=== PATIENT | male | born 1945 | race Asian ===

== ENCOUNTER 2018-09-12 19:14 | Emergency (ER) | payer MEDICARE, MEDICAID ==
[~2018-09-12] VITALS: Ht 172.7 cm; Wt 68.0 kg
[2018-09-12] MEDS ORDERED: LISI-285 PO (19:57)
[2018-09-12] MEDS ORDERED: DOCU-94 PO (19:57)
[2018-09-12] MEDS ORDERED: FAMO-12 PO (19:57)
[2018-09-12] MEDS ORDERED: HYDRX10T PO (19:57)
[2018-09-12 19:59] LABS: Hematocrit 44.1 % (41.0-53.0); Hemoglobin 14.5 g/dL (13.5-17.5); Mean Corpuscular Hemoglobin 27.9 pg (28.0-32.0); Mean Corpuscular Hgb Conc. 32.8 g/dL (32.0-36.0); Mean Corpuscular Volume 84.9 fL (80.0-100.0); Platelet Count (auto) 276 10^3/uL (140-450); Red Cell Distribution Width 13.8 % (11.8-14.3); White Blood Cell 9.4 10^3/uL (4.4-10.8)
[2018-09-12 20:09] LABS: Band Neutrophils % (manual) 0; Basophils % (manual) 0 (0.0-2.0); Blast Cells 0; Metamyelocytes % 0; Myelocytes % 0; Promyelocytes % 0; Reactive Lymphocytes 0
[2018-09-12 20:16] LABS: Albumin 3.8 g/dL (3.4-5.0); Anion Gap 9 (5-15); Blood Urea Nitrogen 10 mg/dL (7-18); Calcium 9.2 mg/dL (8.5-10.1); Carbon Dioxide 27 mmol/L (21-32); Chloride 101 mmol/L (98-107); Glucose 85 mg/dL (74-106); Potassium 3.8 mmol/L (3.5-5.1); Sodium 137 mmol/L (136-145)
[2018-09-12 20:22] LABS: Alanine Aminotransferase 17 U/L (16-61); Alkaline Phosphatase 80 U/L (45-117); Aspartate Aminotransferase 22 U/L (15-37); BUN/Creatinine Ratio 11.1; Bilirubin, Total 0.4 mg/dL (0.2-1.0); GFR African American 106 mL/min; GFR Non-African American 88 mL/min; Total Protein 8.1 g/dL (6.4-8.2)
[2018-09-12 20:27] LABS: Urine Bacteria FEW /hpf (None Seen); Urine Blood Negative /uL (Negative); Urine Mucus FEW (None Seen); Urine Specific Gravity 1.003 (1.001-1.035); Urine WBC <1 /hpf (0 - 3)
[2018-09-12 21:50] LABS: Eosinophils % (manual) 16 (0-7); Lymphocytes % (manual) 24 (10.0-50.0); Monocytes % (manual) 5 (0-12)
[2018-09-13 00:05] VITALS: BP 142/77
[2018-09-13] MEDS ORDERED: cefTRIAXone 1GM/50ML D5W 50 ML IV ONE (01:30)
== END 2018-09-13 01:27 | disposition home or self-care (01) ==
LOC: EDBD 19:14 → ER 19:14
DX: J20.9 Acute bronchitis, unspecified (principal); N39.0 Urinary tract infection, site not specified; I10 Essential (primary) hypertension
CPT/HCPCS: 36415; 71045; 80053; 81001; 83735; 83880; 84484; 85007; 85027; 85379; 93005; 94761